=== PATIENT | female | born 1970 | race Caucasian/White ===

== ENCOUNTER 2016-07-28 10:22 | Emergency (ER) | payer OTHER ==
[~2016-07-28] VITALS: Ht 167.6 cm; Wt 61.2 kg
[~2016-07-28 10:22] MED LIST: EFFEXOR37.5 MG PO; FLEXERIL10 MG PO; FLOVENT HFA12 GM IH; FLUTICASON0.05 MG/AC NAS; KLONOPIN1 MG PO; LEVETIRACETAM500 MG PO; MONTELUKAST SOD10 MG PO; MOTRIN800 MG PO; SPIRIVA -- 3018 MCG PO; ULTRAM50 MG PO; VALIUM10 MG PO; VICODIN 5/500 505 MG PO
[2016-07-28] MEDS ORDERED: LAMICTAL25 MG PO (10:29)
== END 2016-07-28 13:32 | disposition home or self-care (01) ==
LOC: ED 10:22
DX: R51 Headache (principal); M54.2 Cervicalgia; F17.200 Nicotine dependence, unspecified, uncomplicated; Z79.899 Other long term (current) drug therapy; Y04.0XXA Assault by unarmed brawl or fight, initial encounter; Y93.89 Activity, other specified; Y92.89 Other specified places as the place of occurrence of the external cause; Y99.8 Other external cause status

== ENCOUNTER 2021-08-20 09:14 | Emergency (ER) | payer OTHER ==
[~2021-08-20] VITALS: Wt 60.8 kg
[~2021-08-20 09:14] MED LIST changes: +LAMICTAL25 MG PO
[2021-08-20] MEDS ORDERED: NAPROSYN500 MG PO (12:14)
[2021-08-20] MEDS ORDERED: CYCLOBENZAPRINE10 MG PO (12:14)
== END 2021-08-20 12:22 | disposition home or self-care (01) ==
LOC: ED 09:14
DX: S43.102A Unspecified dislocation of left acromioclavicular joint, initial encounter (principal); M19.072 Primary osteoarthritis, left ankle and foot; Z79.899 Other long term (current) drug therapy; Z98.51 Tubal ligation status; F17.200 Nicotine dependence, unspecified, uncomplicated; X58.XXXA Exposure to other specified factors, initial encounter; Y93.89 Activity, other specified; Y92.89 Other specified places as the place of occurrence of the external cause; Y99.8 Other external cause status

== ENCOUNTER 2021-12-31 15:30 | Emergency (ER) | payer OTHER ==
[~2021-12-31] VITALS: Wt 59.9 kg
[~2021-12-31 15:30] MED LIST changes: +CYCLOBENZAPRINE10 MG PO; +NAPROSYN500 MG PO
[2021-12-31 17:00] LABS: BILIRUBIN Negative (Negative); BLOOD Negative (Negative); CLARITY Clear (Clear); COLOR Yellow (Yellow); GLUCOSE Negative (Negative); KETONE Negative (Negative); LEUKO ESTERASE Trace (Negative); NITRITE Negative (Negative); SPECIFIC GRAVITY <= 1.005 (1.001-1.030); UROBILINOGEN 0.2 E.U./dl (0.0-1.0)
[2021-12-31 17:15] LABS: BACTERIA TRACE; RBC 0-2 rbc/hpf (0-2); WBC 0-2 wbc/hpf (0-5)
== END 2021-12-31 17:50 | disposition home or self-care (01) ==
LOC: ED 15:30
PROVIDERS: Nurse Practitioner
DX: R35.0 Frequency of micturition (principal); Z79.899 Other long term (current) drug therapy; Z98.51 Tubal ligation status

== ENCOUNTER 2022-01-18 10:03 | Emergency (ER) | payer OTHER ==
[~2022-01-18] VITALS: Ht 167.6 cm; Wt 59.9 kg
[2022-01-18 10:45] LABS: BASO # 0.1 10*3/uL (0.0-0.1); BASO % 0.6 % (0.0-1.0); EOS # 0.2 10*3/uL (0.0-0.4); EOS % 2.1 % (1.0-4.0); LYMPH # 2.1 10*3/uL (1.3-4.4); LYMPH % 24.7 % (27.0-41.0); MEAN CELL VOLUME 94.8 fl (81.0-99.0); MEAN CORPUSCULAR HGB CONC 33.7 g/dl (33.0-37.0); MEAN PLATELET VOLUME 9.7 fl (9.6-12.3); MONO # 0.8 10*3/uL (0.1-1.0); MONO % 9.5 % (3.0-9.0); NEUT # 5.2 10*3/uL (2.3-7.9); NEUT % 62.4 % (47.0-73.0); PLATELET COUNT AUTOMATED 299 10*3/uL (130-400); RED BLOOD COUNT 4.85 10*6/uL (4.10-5.10); RED CELL DISTRI WIDTH 13.5 % (0-14.5); WHITE BLOOD COUNT 8.4 10*3/uL (4.8-10.8)
[2022-01-18 10:53] LABS: BILIRUBIN Negative (Negative); BLOOD Negative (Negative); CLARITY Clear (Clear); COLOR Yellow (Yellow); GLUCOSE Negative (Negative); KETONE Negative (Negative); LEUKO ESTERASE 1+ (Negative); NITRITE Negative (Negative); SPECIFIC GRAVITY 1.015 (1.001-1.030); UROBILINOGEN 0.2 E.U./dl (0.0-1.0)
[2022-01-18 10:57] LABS: ACT PARTIAL THROMBO TIME 30.5 SECONDS (20.0-32.1)
[2022-01-18 11:05] LABS: BACTERIA 1+
[2022-01-18 11:13] LABS: ALKALINE PHOSPHATASE 113 U/L (46-116); BUN 9 mg/dl (9-23); CHLORIDE 102 mmol/L (98-107); CREATININE 0.75 mg/dL (0.55-1.02); LIPASE 35 U/L (12-53); POTASSIUM 4.2 mmol/L (3.4-5.1); SGPT/ALT 20 U/L (10-49); SODIUM 138 mmol/L (136-145)
[2022-01-18 11:14] LABS: TOTAL PROTEIN 7.6 gm/dL (6.0-8.0)
[2022-01-18] MEDS ORDERED: RELAFEN500 M1 PO (13:08)
[2022-01-18] MEDS ORDERED: CYCLOBENZAPRINE10 MG PO (13:09)
== END 2022-01-18 13:47 | disposition home or self-care (01) ==
LOC: ED 10:03
PROVIDERS: Family Medicine
DX: R10.9 Unspecified abdominal pain (principal); F17.200 Nicotine dependence, unspecified, uncomplicated; Z79.899 Other long term (current) drug therapy; Z98.51 Tubal ligation status

== ENCOUNTER 2022-04-07 09:02 | Emergency (ER) | payer OTHER ==
[~2022-04-07] VITALS: Ht 167.6 cm; Wt 63.5 kg
[~2022-04-07 09:02] MED LIST changes: +RELAFEN500 M1 PO
[2022-04-07 10:08] LABS: BASO % 0.4 % (0.0-1.0); EOS # 0.2 10*3/uL (0.0-0.4); EOS % 2.8 % (1.0-4.0); HEMATOCRIT 46.4 % (37.0-47.0); LYMPH % 27.8 % (27.0-41.0); MEAN CELL VOLUME 94.7 fl (81.0-99.0); MEAN CORPUSCULAR HGB CONC 32.8 g/dl (33.0-37.0); MONO # 0.7 10*3/uL (0.1-1.0); MONO % 9.9 % (3.0-9.0); NEUT # 4.2 10*3/uL (2.3-7.9); NEUT % 58.5 % (47.0-73.0); PLATELET COUNT AUTOMATED 257 10*3/uL (130-400); WHITE BLOOD COUNT 7.1 10*3/uL (4.8-10.8)
[2022-04-07 10:21] LABS: ACT PARTIAL THROMBO TIME 29.6 SECONDS (20.0-32.1)
[2022-04-07 10:32] LABS: ALKALINE PHOSPHATASE 103 U/L (46-116); BUN 10 mg/dl (9-23); CHLORIDE 104 mmol/L (98-107); LIPASE 35 U/L (12-53); POTASSIUM 3.6 mmol/L (3.4-5.1); SGPT/ALT 24 U/L (10-49); TOTAL PROTEIN 7.5 gm/dL (6.0-8.0)
[2022-04-07] MEDS ORDERED: PREDNISONE50 MG PO (12:45)
[2022-04-07] MEDS ORDERED: ZITHROMAX250 MG PO (12:45)
== END 2022-04-07 12:59 | disposition home or self-care (01) ==
LOC: ED 09:02
PROVIDERS: Internal Medicine
DX: J20.9 Acute bronchitis, unspecified (principal); G43.909 Migraine, unspecified, not intractable, without status migrainosus; Z98.51 Tubal ligation status; Z98.890 Other specified postprocedural states

== ENCOUNTER 2022-05-12 13:45 | Emergency (ER) | payer BC, OTHER ==
[~2022-05-12] VITALS: Ht 167.6 cm; Wt 56.7 kg
[~2022-05-12 13:45] MED LIST changes: +PREDNISONE50 MG PO; +ZITHROMAX250 MG PO
== END 2022-05-12 14:20 | disposition home or self-care (01) ==
LOC: ED 13:45
DX: M25.572 Pain in left ankle and joints of left foot (principal); G43.909 Migraine, unspecified, not intractable, without status migrainosus; Z98.51 Tubal ligation status; Z98.890 Other specified postprocedural states

== ENCOUNTER 2022-07-16 14:43 | Emergency (ER) | payer BC, OTHER | END 2022-07-16 15:54 | disposition left against medical advice (07) | LOC: ED 14:43 | DX: R07.89 Other chest pain (principal); R05.9 Cough, unspecified; Z53.21 Procedure and treatment not carried out due to patient leaving prior to being seen by health care provider ==

== ENCOUNTER 2022-07-28 14:10 | Emergency (ER) | payer BC, OTHER ==
[~2022-07-28] VITALS: Ht 167.6 cm; Wt 63.5 kg
[2022-07-28] MEDS ORDERED: PREDNISONE20 M1 PO (20:21)
[2022-07-28] MEDS ORDERED: ZITHROMAX250 MG PO (20:21)
== END 2022-07-28 20:23 | disposition home or self-care (01) ==
LOC: ED 14:10
DX: J40 Bronchitis, not specified as acute or chronic (principal); G43.909 Migraine, unspecified, not intractable, without status migrainosus; Z98.51 Tubal ligation status; Z87.891 Personal history of nicotine dependence

== ENCOUNTER 2023-02-22 11:40 | Emergency (ER) | payer SELFPAY ==
[~2023-02-22] VITALS: Ht 170.1 cm; Wt 62.1 kg
[~2023-02-22 11:40] MED LIST changes: +PREDNISONE20 M1 PO
== END 2023-02-22 12:51 | disposition left against medical advice (07) ==
LOC: ED 11:40
DX: N89.8 Other specified noninflammatory disorders of vagina (principal); Z53.21 Procedure and treatment not carried out due to patient leaving prior to being seen by health care provider

== ENCOUNTER 2023-05-19 08:47 | Emergency (ER) | payer OTHER ==
[~2023-05-19] VITALS: Ht 167.6 cm; Wt 62.1 kg
[2023-05-19] MEDS ORDERED: DICYCLOMINE HYD20 MG PO (08:54)
[2023-05-19] MEDS ORDERED: MORPHINE Sulfate 2 MG/ML SYR IV ONE (09:05)
[2023-05-19] MEDS ORDERED: Ondansetron Hydrochloride 4 MG/2 ML VIAL IV ONE (09:05)
[2023-05-19] MEDS ORDERED: Ketorolac Tromethamine 15 MG/ML VIAL IV ONE (09:05)
[2023-05-19] MEDS ORDERED: IOHEXOL 300 MG/ML 100 ML VIAL IV ONE (09:05)
[2023-05-19] MEDS ORDERED: SODIUM CHLORIDE 0.9% 1,000 ML IV ONE (09:05)
[2023-05-19 09:19] LABS: BASO % 0.4 % (0.0-1.0); EOS # 0.3 10*3/uL (0.0-0.4); EOS % 3.6 % (1.0-4.0); LYMPH # 1.7 10*3/uL (1.3-4.4); MEAN CELL VOLUME 92.9 fl (81.0-99.0); MEAN CORPUSCULAR HGB 29.3 pg (27.0-31.0); MEAN CORPUSCULAR HGB CONC 31.5 g/dl (33.0-37.0); MONO # 0.5 10*3/uL (0.1-1.0); MONO % 6.5 % (3.0-9.0); NEUT % 66.2 % (47.0-73.0); PLATELET COUNT AUTOMATED 279 10*3/uL (130-400); RED BLOOD COUNT 4.95 10*6/uL (4.10-5.10); RED CELL DISTRI WIDTH 13.6 % (0-14.5); WHITE BLOOD COUNT 7.5 10*3/uL (4.8-10.8)
[2023-05-19 09:50] LABS: ALKALINE PHOSPHATASE 86 U/L (46-116); BUN 9 mg/dl (9-23); CHLORIDE 108 mmol/L (98-107); LIPASE 39 U/L (12-53); SGPT/ALT 29 U/L (5-49)
[2023-05-19 09:50] LABS: BILIRUBIN Negative (Negative); BLOOD Negative (Negative); CLARITY Clear (Clear); COLOR Yellow (Yellow); GLUCOSE Negative (Negative); KETONE Negative (Negative); LEUKO ESTERASE 1+ (Negative); NITRITE Negative (Negative); PH 5.5 (4.5-8.0); SPECIFIC GRAVITY 1.015 (1.001-1.030); UROBILINOGEN 0.2 E.U./dl (0.0-1.0)
[2023-05-19 10:09] LABS: BACTERIA TRACE; MUCOUS 1+
[2023-05-19] MEDS ORDERED: MELOXICAM15 MG PO (11:49)
== END 2023-05-19 11:51 | disposition home or self-care (01) ==
LOC: ED 08:47
PROVIDERS: Emergency Medicine
DX: R10.31 Right lower quadrant pain (principal); G43.909 Migraine, unspecified, not intractable, without status migrainosus; Z98.51 Tubal ligation status; Z98.890 Other specified postprocedural states